=== PATIENT | female | born 1990 | race Hispanic/Latino ===

== ENCOUNTER 2018-08-08 19:24 | Observation (INO) | payer OTHER ==
[~2018-08-08] VITALS: Ht 154.9 cm; Wt 78.0 kg
--- OUTSIDE RECORDS SUMMARY | 2018-08-08 19:27 | XMS REPORT ---
Author Author [facility] Address Unknown Phone Unavailable Care Team Providers Care Senior Licensing Manager Name Role Phone JUANCHO NGUYEN Unavailable Unavailable GABE PANG Unavailable Unavailable GILBERT ROACH Unavailable Unavailable Problems This patient has no known problems. Allergies, Adverse Reactions, Alerts This patient has no known allergies or adverse reactions. Medications This patient has no known medications. Results Test Description Test Time Test Comments Text Results Atomic Results Result Comments ALPHA FETOPROTEIN (AFP), TUMOR MARKER 2017-05-24 17:44:00 ALPHA-FETOPROTEIN (BEAKER) (test hvpf=4697) 2.3 ng/mL <10.0 LIPID [id number] 17:29:00* Test Item Value Reference Range Comments TRIGLYCERIDES (BEAKER) (test dzwm=983) 84 mg/dL CHOLESTEROL (BEAKER) (test kccy=861) 168 mg/dL HDL CHOLESTEROL (BEAKER) (test sagg=258) 61 mg/dL LDL CHOLESTEROL CALCULATED (BEAKER) (test zujd=939) 90 mg/dL Triglyceride Reference Range: Low Risk <150 Borderline 150-199 High Risk 200-499 Very High Risk >=500Cholesterol Reference Range: Low Risk <200 Borderline 200-239 High Risk >240HDL Cholesterol Reference Range: Low Risk >=60 High Risk <40LDL Cholesterol Reference Range: Optimal <100 Near Optimal 100-129 Borderline 130-159 High 160-189 Very High >=190 BASIC METABOLIC [id number] 17:29:00* Test Item Value Reference Range Comments SODIUM (BEAKER) (test xzlb=881) 138 meq/L 136-145 POTASSIUM (BEAKER) (test izmm=468) 3.6 meq/L 3.5-5.1 CHLORIDE (BEAKER) (test mlzx=860) 101 meq/L 98-107 CO2 (BEAKER) (test kxyz=102) 28 meq/L 22-29 BLOOD UREA NITROGEN (BEAKER) (test ipdn=186) 12 mg/dL 7-21 CREATININE (BEAKER) (test wlqs=288) 0.70 mg/dL 0.57-1.25 GLUCOSE RANDOM (BEAKER) (test dezw=586) 92 mg/dL 70-105 CALCIUM (BEAKER) (test ijpw=116) 9.3 mg/dL 8.4-10.2 EGFR (BEAKER) (test ybxw=7934) 100 mL/min/1.73 sq m INSUFFICIENT CLINICAL DATA TO CALCULATE ESTIMATED GFR. HEPATIC FUNCTION [id number] 17:29:00* Test Item Value Reference Range Comments TOTAL PROTEIN (BEAKER) (test dzpn=366) 7.6 gm/dL 6.0-8.3 ALBUMIN (BEAKER) (test dlbz=9757) 4.1 g/dL 3.5-5.0 BILIRUBIN TOTAL (BEAKER) (test vksl=722) 0.3 mg/dL 0.2-1.2 BILIRUBIN DIRECT (BEAKER) (test zwlw=688) 0.1 mg/dL 0.1-0.5 ALKALINE PHOSPHATASE (BEAKER) (test ngqa=099) 84 U/L 40-150 AST (SGOT) (BEAKER) (test jojx=694) 16 U/L 5-34 ALT (SGPT) (BEAKER) (test aqls=345) 18 U/L 6-55 GAMMA GLUTAMYL TRANSFERASE (GGT)2017-05-24 17:29:00* Test Item Value Reference Range Comments GAMMA GLUTAMYL TRANSFERASE (BEAKER) (test kbit=653) 21 U/L 9-64 PROTHROMBIN [id number] 17:10:00* Test Item Value Reference Range Comments PROTIME (BEAKER) (test tboq=525) 13.7 seconds 11.7-14.7 INR (BEAKER) (test byhx=032) 1.1 <=5.9 RECOMMENDED COUMADIN/WARFARIN INR THERAPY RANGESSTANDARD DOSE: 2.0 - 3.0 Inclu allison: PROPHYLAXIS for venous thrombosis, systemic embolization; TREATMENT for rena ous thrombosis and/or pulmonary embolus.HIGH RISK: Target INR is 2.5-3.5 for pat ients with mechanical heart valves.CBC W/PLT COUNT & AUTO [id number] 17:05:00* Test Item Value Reference Range Comments WHITE BLOOD CELL COUNT (BEAKER) (test wupe=068) 9.3 K/ L 3.5-10.5 RED BLOOD CELL COUNT (BEAKER) (test spmk=499) 4.11 M/ L 3.93-5.22 HEMOGLOBIN (BEAKER) (test hlga=265) 12.2 GM/DL 11.2-15.7 HEMATOCRIT (BEAKER) (test crzg=341) 37.2 % 34.1-44.9 MEAN CORPUSCULAR VOLUME (BEAKER) (test pgwv=223) 90.5 fL 79.4-94.8 MEAN CORPUSCULAR HEMOGLOBIN (BEAKER) (test wwzi=113) 29.7 pg 25.6-32.2 MEAN CORPUSCULAR HEMOGLOBIN CONC (BEAKER) (test xuyt=756) 32.8 GM/DL 32.2-35.5 RED CELL DISTRIBUTION WIDTH (BEAKER) (test vuvy=497) 11.7 % 11.7-14.4 PLATELET COUNT (BEAKER) (test unbv=353) 277 K/CU MM 150-450 MEAN PLATELET VOLUME (BEAKER) (test qtnm=142) 9.8 fL 9.4-12.3 NUCLEATED RED BLOOD CELLS (BEAKER) (test drxr=698) 0 /100 WBC 0-0 NEUTROPHILS RELATIVE PERCENT (BEAKER) (test thyk=205) 51 % LYMPHOCYTES RELATIVE PERCENT (BEAKER) (test dpnd=010) 42 % MONOCYTES RELATIVE PERCENT (BEAKER) (test vihf=442) 6 % EOSINOPHILS RELATIVE PERCENT (BEAKER) (test nvao=203) 1 % BASOPHILS RELATIVE PERCENT (BEAKER) (test ibqm=228) 0 % NEUTROPHILS ABSOLUTE COUNT (BEAKER) (test wove=174) 4.72 K/ L 1.56-6.13 LYMPHOCYTES ABSOLUTE COUNT (BEAKER) (test jdxz=787) 3.92 K/ L 1.18-3.74 MONOCYTES ABSOLUTE COUNT (BEAKER) (test zsfx=911) 0.56 K/ L 0.24-0.36 EOSINOPHILS ABSOLUTE COUNT (BEAKER) (test jphm=587) 0.06 K/ L 0.04-0.36 BASOPHILS ABSOLUTE COUNT (BEAKER) (test rljs=482) 0.04 K/ L 0.01-0.08 IMMATURE GRANULOCYTES-RELATIVE PERCENT (BEAKER) (test lefk=4337) 0 % 0-1 TISSUE [id number] 10:14:00Surgical Pathology Report Case: [id number] Authorizing Provider: Wade Pang Collected: 03/23/2017 0858 MD Gabe Ordering Location: [facility] Endoscopy Received: 03/23/2017 1135 Services Pathologist: Jenn Sol MD Specimen: Biopsy, Gastric, Bx Random Gastric STOMACH, RANDOM, BIOPSY- REACTIVE GASTROPATHY- NEGATIVE FOR HELICOBACTER ON WARTHIN-STARRY STAIN Signing Pathologist Direct Phone Line: [phone] signed by Jenn Sol MD on 03/26/2017 at 10:14 [id number], [id number] Random gastric biopsy The specimen is received in a formalin-filled container labeled with the patient's information and labeled "random gastric biopsy" and consists of a 0.3 cm fragment of tracey tissue submitted in A1. CG/ew Performed.CBC W/PLT COUNT & AUTO [id number] 19:28:00* Test Item Value Reference Range Comments WHITE BLOOD CELL COUNT (BEAKER) (test rwju=954) 6.9 K/ L 3.5-10.5 RED BLOOD CELL COUNT (BEAKER) (test iqle=258) 4.11 M/ L 3.93-5.22 HEMOGLOBIN (BEAKER) (test rgsx=513) 12.1 GM/DL 11.2-15.7 HEMATOCRIT (BEAKER) (test jfvr=569) 35.3 % 34.1-44.9 MEAN CORPUSCULAR VOLUME (BEAKER) (test pxkv=400) 85.9 fL 79.4-94.8 MEAN CORPUSCULAR HEMOGLOBIN (BEAKER) (test xkxo=360) 29.4 pg 25.6-32.2 MEAN CORPUSCULAR HEMOGLOBIN CONC (BEAKER) (test zore=310) 34.3 GM/DL 32.2-35.5 RED CELL DISTRIBUTION WIDTH (BEAKER) (test ampj=062) 12.3 % 11.7-14.4 PLATELET COUNT (BEAKER) (test rsux=646) 253 K/CU MM 150-450 MEAN PLATELET VOLUME (BEAKER) (test idhd=012) 9.6 fL 9.4-12.3 NUCLEATED RED BLOOD CELLS (BEAKER) (test vexw=349) 0 /100 WBC 0-0 NEUTROPHILS RELATIVE PERCENT (BEAKER) (test tqtb=990) 41 % LYMPHOCYTES RELATIVE PERCENT (BEAKER) (test bgwa=821) 48 % MONOCYTES RELATIVE PERCENT (BEAKER) (test fjuo=780) 9 % EOSINOPHILS RELATIVE PERCENT (BEAKER) (test nqcv=229) 1 % BASOPHILS RELATIVE PERCENT (BEAKER) (test hbxs=498) 0 % NEUTROPHILS ABSOLUTE COUNT (BEAKER) (test ylck=151) 2.86 K/ L 1.56-6.13 LYMPHOCYTES ABSOLUTE COUNT (BEAKER) (test bbkx=462) 3.33 K/ L 1.18-3.74 MONOCYTES ABSOLUTE COUNT (BEAKER) (test pgph=906) 0.61 K/ L 0.24-0.36 EOSINOPHILS ABSOLUTE COUNT (BEAKER) (test ahmk=003) 0.09 K/ L 0.04-0.36 BASOPHILS ABSOLUTE COUNT (BEAKER) (test bhxt=206) 0.03 K/ L 0.01-0.08 IMMATURE GRANULOCYTES-RELATIVE PERCENT (BEAKER) (test gxkz=7150) 0 % 0-1 CREATINE KINASE (CK), TOTAL AND [id number] 18:26:00* Test Item Value Reference Range Comments CREATINE KINASE TOTAL (BEAKER) (test olfe=651) 73 U/L 29-200 CREATINE KINASE-MB (BEAKER) (test qetw=151) 0.8 ng/mL 0.0-6.6 CREATINE KINASE-MB INDEX (BEAKER) (test zthq=241) 1.1 % Effective 02/24/2014: CK-MB Reference Range ChangeNew: 0.0-6.6 Previous: 0.0- 4.9CK-MB Reference Range:<6.7 Normal6.7-10.0 Borderline>10.0 Abnormal TROPONIN [id number] 18:26:00* Test Item Value Reference Range Comments TROPONIN I (BEAKER) (test aluo=605) < ng/mL 0.00-0.03 Effective 02/24/2014: Reference Range ChangeNew: 0.00-0.03 Previous 0.00-0.15T roponin I (TnI) levels must be interpreted in the context of the presenting symp toms and the clinical findings. Elevated TnI levels indicate myocardial damage, but are not specific for ischemic heart disease. Elevated TnI levels are seen in patients with other cardiac conditions (including myocarditis and congestive he art failure), and slight TnI elevations occur in patients with other conditions, including sepsis, renal failure, acidosis, acute neurological disease, and pers istent tachyarrhythmia.BASIC METABOLIC [id number] 18:24:00* Test Item Value Reference Range Comments SODIUM (BEAKER) (test qltt=866) 138 meq/L 136-145 POTASSIUM (BEAKER) (test ufpx=569) 3.3 meq/L 3.5-5.1 CHLORIDE (BEAKER) (test ueaz=436) 102 meq/L 98-107 CO2 (BEAKER) (test bjhc=004) 27 meq/L 22-29 BLOOD UREA NITROGEN (BEAKER) (test rzbh=290) 10 mg/dL 7-21 CREATININE (BEAKER) (test cvnl=285) 0.72 mg/dL 0.57-1.25 GLUCOSE RANDOM (BEAKER) (test vnfc=721) 94 mg/dL 70-105 CALCIUM (BEAKER) (test ysjj=800) 9.2 mg/dL 8.4-10.2 EGFR (BEAKER) (test ruve=8429) mL/min/1.73 sq m INSUFFICIENT CLINICAL DATA TO CALCULATE ESTIMATED GFR. HEPATIC FUNCTION [id number] 15:39:00* Test Item Value Reference Range Comments TOTAL PROTEIN (BEAKER) (test udgk=353) 8.2 gm/dL 6.0-8.3 ALBUMIN (BEAKER) (test fmex=7588) 4.4 g/dL 3.5-5.0 BILIRUBIN TOTAL (BEAKER) (test urbt=913) 0.4 mg/dL 0.2-1.2 BILIRUBIN DIRECT (BEAKER) (test faxa=422) 0.2 mg/dL 0.1-0.5 ALKALINE PHOSPHATASE (BEAKER) (test buft=947) 91 U/L 40-150 AST (SGOT) (BEAKER) (test hlbu=473) 22 U/L 5-34 ALT (SGPT) (BEAKER) (test drrv=851) 17 U/L 6-55 BASIC METABOLIC [id number] 15:39:00* Test Item Value Reference Range Comments SODIUM (BEAKER) (test dybz=171) 136 meq/L 136-145 POTASSIUM (BEAKER) (test qcrg=860) 4.3 meq/L 3.5-5.1 CHLORIDE (BEAKER) (test umjl=748) 101 meq/L 98-107 CO2 (BEAKER) (test rggb=951) 26 meq/L 22-29 BLOOD UREA NITROGEN (BEAKER) (test gwyo=336) 11 mg/dL 7-21 CREATININE (BEAKER) (test dabt=866) 0.70 mg/dL 0.57-1.25 GLUCOSE RANDOM (BEAKER) (test zygb=083) 73 mg/dL 70-105 CALCIUM (BEAKER) (test zxyc=435) 9.5 mg/dL 8.4-10.2 EGFR (BEAKER) (test xdxh=6444) mL/min/1.73 sq m INSUFFICIENT CLINICAL DATA TO CALCULATE ESTIMATED GFR. CBC W/PLT COUNT & AUTO [id number] 15:23:00* Test Item Value Reference Range Comments WHITE BLOOD CELL COUNT (BEAKER) (test moev=867) 7.7 K/ L 3.5-10.5 RED BLOOD CELL COUNT (BEAKER) (test bysq=471) 4.54 M/ L 3.93-5.22 HEMOGLOBIN (BEAKER) (test lxoy=382) 13.3 GM/DL 11.2-15.7 HEMATOCRIT (BEAKER) (test rfgx=927) 40.3 % 34.1-44.9 MEAN CORPUSCULAR VOLUME (BEAKER) (test nmju=066) 88.8 fL 79.4-94.8 MEAN CORPUSCULAR HEMOGLOBIN (BEAKER) (test ctlp=677) 29.3 pg 25.6-32.2 MEAN CORPUSCULAR HEMOGLOBIN CONC (BEAKER) (test hzgx=518) 33.0 GM/DL 32.2-35.5 RED CELL DISTRIBUTION WIDTH (BEAKER) (test ursp=145) 12.6 % 11.7-14.4 PLATELET COUNT (BEAKER) (test pgny=037) 295 K/CU MM 150-450 MEAN PLATELET VOLUME (BEAKER) (test neqm=398) 10.0 fL 9.4-12.3 NUCLEATED RED BLOOD CELLS (BEAKER) (test hblk=124) 0 /100 WBC 0-0 NEUTROPHILS RELATIVE PERCENT (BEAKER) (test hyqz=916) 52 % LYMPHOCYTES RELATIVE PERCENT (BEAKER) (test obev=529) 41 % MONOCYTES RELATIVE PERCENT (BEAKER) (test rmfj=004) 6 % EOSINOPHILS RELATIVE PERCENT (BEAKER) (test aazu=606) 1 % BASOPHILS RELATIVE PERCENT (BEAKER) (test qygl=764) 0 % NEUTROPHILS ABSOLUTE COUNT (BEAKER) (test phdc=730) 4.01 K/ L 1.56-6.13 LYMPHOCYTES ABSOLUTE COUNT (BEAKER) (test wvii=622) 3.12 K/ L 1.18-3.74 MONOCYTES ABSOLUTE COUNT (BEAKER) (test jguc=428) 0.42 K/ L 0.24-0.36 EOSINOPHILS ABSOLUTE COUNT (BEAKER) (test nwyj=918) 0.06 K/ L 0.04-0.36 BASOPHILS ABSOLUTE COUNT (BEAKER) (test icnc=557) 0.03 K/ L 0.01-0.08 IMMATURE GRANULOCYTES-RELATIVE PERCENT (BEAKER) (test rdau=0280) 0 % 0-1 TISSUE [id number] 16:06:00Surgical Pathology Report Case: [id number] Authorizing Provider: Wade Ortiz Collected: 10/13/2016 0908 MD Gabe Ordering Location: [facility] Received: 10/13/2016 1427 Pathologist: Gordy Rodriguez MD Specimen: Stomach, BX/RANDOM/FORCEP STOMACH, RANDOM BIOPSY: - MILD CHRONIC INACTIVE GASTRITIS - H.PYLORI NEGATIVE BY WARTHIN-STARRY STAIN - NEGATIVE FOR INTESTINAL METAPLASIA, DYSPLASIA AND MALIGNANCY 34460, 34805Kbtqemnvya strictureRandom stomach biopsyThe specimen is received in a formalin-filled container and labeled with the patient's information and labeled "stomach biopsy" and consists of a 0.2 cm round fragment of tracey soft tissue, submitted entirely A1. CG/pl Performed.[id number] 09:21:00* Test Item Value Reference Range Comments POC-CREATININE (BEAKER) (test jsrl=3790) 0.6 mg/dL 0.6-1.3 [address] [address] POC-EGFR (BEAKER) (test ncat=8629) mL/min/1.73M2 Insufficient clinical data to calculate estimated GFR HEPATIC FUNCTION [id number] 13:45:00* Test Item Value Reference Range Comments TOTAL PROTEIN (BEAKER) (test hplp=779) 7.9 gm/dL 6.0-8.3 ALBUMIN (BEAKER) (test irvh=3309) 4.3 g/dL 3.5-5.0 BILIRUBIN TOTAL (BEAKER) (test qdvy=077) 0.5 mg/dL 0.2-1.2 BILIRUBIN DIRECT (BEAKER) (test atgj=074) 0.2 mg/dL 0.1-0.5 ALKALINE PHOSPHATASE (BEAKER) (test tbsg=483) 82 U/L 40-150 AST (SGOT) (BEAKER) (test padj=962) 20 U/L 5-34 ALT (SGPT) (BEAKER) (test przi=273) 20 U/L 6-55 IMMUNOGLOBULIN G (IGG)2016-08-02 13:41:00* Test Item Value Reference Range Comments IMMUNOGLOBULIN G (IGG) (BEAKER) (test qptj=749) 1476 mg/dL 540-1822 TISSUE [id number] 15:11:00Surgical Pathology Report Case: [id number] Authorizing Provider: Humble Mir Ordering Provider: Wade Mir MD Fernando, MD Ordering Location: [facility] Collected: 07/03/2016 1054 Pathologist: Ne Hernández MD Received: 07/03/2016 8143 Specimen: Gastric, RANDOM STOMACH BX R/O H PYLORI STOMACH, RANDOM BIOPSY: - GASTRIC ANTRAL AND JUNCTIONAL MUCOSA WITH CHRONIC INACTIVE GASTRITIS - NEGATIVE FOR INTESTINAL METAPLASIA - WARTHIN-STARRY STAIN NEGATIVE FOR HELICOBA CTER PYLORI MICRO-ORGANISMS Signing Pathologist Direct Phone Line: [phone], 88312dysphagia unspecified type, esophageal stricture, rule out H. pyloriR andom stomach biopsyThe specimen is received in a formalin-filled container and labeled with the patient's information and labeled "random stomach biopsy" and c onsists of two round fragments of tracey-white soft tissue measuring 0.1 and 0.2 cm , submitted A1. CG/plPerformed.
--- OUTSIDE RECORDS SUMMARY | 2018-08-08 19:27 | XMS REPORT | Clinical Summary ---
Author Author [facility] Address Unknown Phone Unavailable Care Team Providers Care Patient Admitting Clerk Name Role Phone Sharpless PCP Allergies Comments Active Allergy Reactions Severity Noted Date Docosanol Hives, High 07/27/2015 Swelling Iodine And Iodide Rash Low 06/20/2016 Containing Products Penicillins Nausea Only, Low 06/20/2016 Rash Medications End Date Status Medication Sig Dispensed Refills Start Date Active FEXOFENADINE HCL (KELSEA Take 1 tablet 0 ORAL) by mouth daily . Active fluticasone (FLONASE) 50 1 spray by 0 mcg/actuation nasal spray Nasal route daily. Active conjugated estrogens Place 0.5 g 0 (PREMARIN) 0.625 mg/gram vaginally vaginal cream daily . Active ALBUTEROL INHL Inhale by 0 mouth via inhaler as needed. Active multivitamin per tablet Take 1 tablet 0 by mouth daily. Active omega-3 fatty Take by 0 acids-vitamin E 1,000 mg mouth. Cap Active ascorbic acid, vitamin C, Take 500 mg 0 (ASCORBIC ACID WITH CHAD by mouth HIPS) 500 MG tablet daily. Active Problems Problem Noted Date Elevated liver enzymes 08/04/2016 Last Assessment & Plan: Mild elevation of liver enzymes in a mixed pattern seen on labs 05/2016. Comprehensive panel was negative for autoimmune, metabolic and viral etiologies of liver disease. US abdomen showed diffuse hepatic steatosis. Her only risk factor for fatty liver disease is obesity. There is no evidence of cirrhosis on exam, labs or imaging. She has lost 10 pounds since 05/2016 and her liver enzymes have normalized. We encouraged her to continue working with the mask layout designer and lose 10% more in the next six months. She agreed with the plan. 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 There is cavernous transformation which indicates chronicity. No need for anticoagulation. EGD in September, did not show gastroesophageal varices. 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 Recently underwent EGD with Dr. Chapman for progressive dysphagia and found to have stricture at the anastomotic site with dilation done. Continue to follow-up with Dr. Chapman. 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 She is scheduled to have another surgery this summer. Obesity (BMI 30.0-34.9) 08/04/2016 Last Assessment & Plan: The patient's current BMI is 34.1. Obesity is an established risk factor for vascular complications (ie coronary artery disease, cerebrovascular disease, peripheral vascular disease), osteoarthritis, pulmonary disease, as well as the development of non-alcoholic fatty liver disease and the risk for non-alcoholic steatohepatitis. She has lost 10 pounds since May 2016. We encouraged her to continue efforts to lose 10% more in the next 3-6 months. Family History Medical History Relation Name Comments Cancer Mother Relation Name Status Comments Mother Social History Date Tobacco Use Types Packs/Day Years Used Never Smoker Smokeless Tobacco: Never Used Alcohol Use Drinks/Week oz/Week Comments Yes 1 Glasses of 1.8 wine 1 Cans of beer 1 Shots of liquor Sex Assigned at Date Recorded Not on file Industry Job Start Date Occupation Not on file Not on file Not on file Travel End Travel History Travel Start No recent travel history available. Last Filed Vital Signs Not on file Plan of Treatment Not on file Results Not on fileafter 08/07/2017 Insurance Payer Benefit Subscriber ID Type Phone Address Plan / Group [employer]ET[employer] - [place] C[employer] AET[employer] HMO xxxxxxxxxx HMO/POS POS QPOS
[2018-08-08] MEDS ORDERED: ASPIRIN 81 MG CHEW TAB PO ONE (20:45)
[2018-08-08] MEDS ORDERED: MORPHINE SULFATE INJ 4 MG/ML INJ 1ML IV PRN (20:45)
[2018-08-08] MEDS ORDERED: ACETAMINOPHEN 325 MG TAB PO PRN (20:45)
[2018-08-08] MEDS ORDERED: DIPHENHYDRAMINE HCL INJ 50 MG/ML VIAL IV PRN (20:45)
[2018-08-08] MEDS ORDERED: ONDANSETRON HCL INJ 2MG/ML 2ML 2 MG/ML VIAL IV PRN (20:45)
[2018-08-08] MEDS ORDERED: ZOLPIDEM TARTRATE 5 MG TAB PO PRN (20:45)
[2018-08-08] MEDS ORDERED: CLONIDINE HCL 0.1 MG TAB PO PRN (20:45)
[2018-08-08] MEDS ORDERED: ENALAPRILAT IV INJ 1.25 MG/ML VIAL IV PRN (20:45)
--- OUTSIDE RECORDS SUMMARY | 2018-08-08 20:52 | XMS REPORT | Clinical Summary ---
Author Author [facility] Address Unknown Phone Unavailable Care Team Providers Care Angular Js Developer Name Role Phone Sharpless PCP Allergies Comments [...] encouraged her to continue working with the car shakeout operator and lose 10% more in the next [...]
--- NOTE | 2018-08-08 20:59 | Diagnostic Imaging Report ---
EXAMINATION: Chest PA and lateral views INDICATION: Shortness of breath chest pain. ^[id number] ^2029 COMPARISON: None FINDINGS: TUBES and LINES: None. LUNGS: Lungs are well inflated. Mild perihilar, peribronchial thickening and perihilar streaky densities may reflect viral infection versus reactive airway disease. There is no evidence of pneumonia or pulmonary edema. PLEURA: No pleural effusion or pneumothorax. HEART AND MEDIASTINUM: The cardiomediastinal silhouette is unremarkable. BONES AND SOFT TISSUES: No acute osseous lesion. 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 UPPER ABDOMEN: No free air under the diaphragm. IMPRESSION: Mild perihilar, peribronchial thickening and perihilar streaky densities may reflect viral infection versus reactive airway disease. No consolidation. Signed by: Dr. Radha De Oliveira M.D. on 08/08/2018 8:56 PM
--- NOTE | 2018-08-08 21:12 | NUR ---
[facility] CALLED FOR TRANSPORT 45MIN ETA
--- NOTE | 2018-08-08 21:46 | NUR ---
PT RESTING, VITAL SIGNS STABLE, PT VOICES NO COMPLAINTS AT THIS TIME
[2018-08-08 22:35] VITALS: BP 130/82
[2018-08-08 23:00] VITALS: BP 130/82
[2018-08-08 23:12] VITALS: BP 130/82
[2018-08-09 04:00] VITALS: BP 106/69
[2018-08-09 05:46] LABS: CREATINE KINASE 55 IU/L (29-168)
[2018-08-09 06:07] LABS: CHOL/HDL RATIO 2.6 (3.0-3.6)
[2018-08-09 06:52] LABS: BASOPHILS % 0.5 % (0.0-1.0); EOSINOPHILS # (AUTO) 0.4 (0.0-0.4); EOSINOPHILS % 4.3 % (0.0-6.0); HEMATOCRIT 35.2 % (34.2-44.1); HEMOGLOBIN 12.1 g/dL (12.0-16.0); LYMPHOCYTES # (AUTO) 3.5 (1.0-3.2); LYMPHOCYTES % 40.8 % (18.0-39.1); MEAN CORPUSCULAR HEMOGLOBIN 30.7 pg (28-32); MEAN CORPUSCULAR HGB CONC 34.4 g/dL (31-35); MEAN CORPUSCULAR VOLUME 89.3 fL (81-99); MONOCYTES # (AUTO) 0.6 (0.2-0.8); MONOCYTES % 7.3 % (4.4-11.3); NEUTROPHILS # (AUTO) 4.1 (2.1-6.9); NEUTROPHILS % 46.9 % (38.7-80.0); PLATELET COUNT 224 x10e3/uL (140-360); RED BLOOD COUNT 3.94 x10e6/uL (3.6-5.1); RED CELL DISTRIBUTION WIDTH 11.9 % (11.7-14.4)
[2018-08-09 07:04] LABS: BLOOD UREA NITROGEN 9 mg/dL (7-26); BUN/CREATININE RATIO 13 (6-25); CALCIUM 9.3 mg/dL (8.4-10.2); CARBON DIOXIDE 26 mmol/L (22-29); CHLORIDE 100 mmol/L (98-107); CREATININE, SERUM 0.69 mg/dL (0.57-1.11); EST GLOMERULAR FILTRATION RATE > 60 ML/MIN (60-); GLUCOSE 80 mg/dL (74-118); MAGNESIUM 1.7 MG/DL (1.3-2.1); SODIUM 135 mmol/L (136-145)
[2018-08-09 07:27] LABS: B-TYPE NATRIURETIC PEPTIDE2 < 10.0 pg/mL (0-100); FREE T4 (FREE THYROXINE) 1.08 ng/dL (0.9-1.8); THYROID STIMULATING HORMONE 2.444 uIU/mL (0.350-4.940)
[2018-08-09] MEDS ORDERED: FAMOTIDINE 20 MG TAB PO SCH (07:30)
--- NOTE | 2018-08-09 07:30 | NUR ---
Gave report to oncoming nurse. Call light within reach. Patient in bed.
[2018-08-09 08:20] VITALS: BP 121/75
[2018-08-09] MEDS ORDERED: ASPIRIN 325 MG TAB PO SCH (09:00)
[2018-08-09] MEDS ORDERED: FAMOTIDINE 20 MG/2 ML VIAL IV SCH (09:00)
[2018-08-09] MEDS ORDERED: ASPIRIN325 MG PO (09:51)
--- NOTE | 2018-08-09 10:20 | NUR ---
Kalli Cornelius, PRICING LEAD reviewed echo and Troponin result given as well. Per PRICING LEAD patient may be discharged.
--- NOTE | 2018-08-09 11:16 | NUR ---
Patient discharged home in stable condition with all belongings. Written instructions and prescription given. Patient verbalized understanding.
--- NOTE | 2018-08-12 03:19 | Discharge Summary ---
ADMISSION DIAGNOSES: Chest pain, asthma, prediabetes history, hepatic steatosis, obesity. DISCHARGE DIAGNOSES: Chest pain, asthma, prediabetes history, hepatic steatosis, obesity. Rule out acute coronary syndrome. HISTORY: The patient has a history of asthma, hepatic steatosis, and prediabetes. SURGICAL HISTORY: Bladder reconstruction, left breast mass removal, esophageal reconstruction, partial hysterectomy, and vaginal reconstruction. FAMILY HISTORY: The patient's aunt and grandma have diabetes. The patient's mom, grandma, and aunt have cancer. The patient's grandma had a stroke. SOCIAL HISTORY: The patient admits to occasional alcohol use. HOSPITAL COURSE: A 28-year-old female complains of substernal chest pressure that began Sunday. She went to the MD and he said it is likely due to her asthma. By , she began having intermittent sharp left chest pain. Nothing worsens the pain, but lying down improves the pain. She denies shortness of breath, diaphoresis, and dizziness. 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 She is currently planning her wedding and has a dress fitting on the day of admission and is very antsy to leave. On admission, the patient had troponins that were negative x2. Chest x-ray positive for peribronchial thickening and perihilar streaky density. Lipids were within normal limits. Echo showed an EF of 50% to 55% with trace MR. The patient is very adamant about leaving today to make her dress fitting. She is no longer having chest pain and is ready to go. She will follow up with primary care in 1-2 weeks and Cardiology as discussed. The patient understands discharge instructions and agrees to plan. Vital signs stable, patient afebrile. Dictated by Kalli Cornelius NP MD ANALY Mcintyre/[place] /[id number]
== END 2018-08-09 11:05 | disposition home or self-care (01) ==
LOC: FSED 19:24 → ERHOLD 20:42 → IMCU 22:35
PROVIDERS: ADMIT Internal Medicine; ATTEND Internal Medicine
DX: R07.9 Chest pain, unspecified (principal); J45.909 Unspecified asthma, uncomplicated; K76.0 Fatty (change of) liver, not elsewhere classified; R73.03 Prediabetes; E66.9 Obesity, unspecified; Z68.32 Body mass index [BMI] 32.0-32.9, adult
CPT/HCPCS: 36415; 71046; 80048; 80053; 80061; 81003; 82550; 82553 ×2; 83036; 83735; 83880; 84439; 84443; 84484 ×2; 85025 ×2; 85379; 93005; 93306; 99284; G0378 ×2

== ENCOUNTER 2019-05-08 17:52 | Emergency (ER) | payer OTHER ==
[~2019-05-08] VITALS: Ht 154.9 cm; Wt 77.1 kg
[~2019-05-08 17:52] MED LIST: ASPIRIN325 MG PO
[2019-05-08] MEDS ORDERED: PREDNISONE20 MG PO (18:23)
[2019-05-08] MEDS ORDERED: TESSALON PERLE100 MG PO (18:23)
== END 2019-05-08 18:42 | disposition home or self-care (01) ==
LOC: FSED 17:52
DX: R05 Cough (principal); J20.9 Acute bronchitis, unspecified; J06.9 Acute upper respiratory infection, unspecified
CPT/HCPCS: 83518; 87400; 99283

== ENCOUNTER 2019-05-10 09:22 | Emergency (ER) | payer OTHER ==
[~2019-05-10] VITALS: Ht 154.9 cm; Wt 77.1 kg
[~2019-05-10 09:22] MED LIST changes: +PREDNISONE20 MG PO; +TESSALON PERLE100 MG PO
[2019-05-10] MEDS ORDERED: SYMBICORT 80-10.2 GM (09:41)
[2019-05-10] MEDS ORDERED: ALBUTEROL2.5 MG/3 M (09:41)
[2019-05-10] MEDS ORDERED: MACRODANTIN100 MG PO (09:41)
== END 2019-05-10 10:00 | disposition home or self-care (01) ==
LOC: FSED 09:22
DX: R50.9 Fever, unspecified (principal); J02.0 Streptococcal pharyngitis
CPT/HCPCS: 83518; 87400; 99283

== ENCOUNTER 2021-11-23 07:00 | Emergency (ER) | payer OTHER ==
[~2021-11-23] VITALS: Ht 154.9 cm; Wt 77.1 kg
[~2021-11-23 07:00] MED LIST changes: +ALBUTEROL2.5 MG/3 M; +MACRODANTIN100 MG PO; +SYMBICORT 80-10.2 GM
== END 2021-11-23 08:25 | disposition home or self-care (01) ==
LOC: FSED 07:23
DX: S00.451A Superficial foreign body of right ear, initial encounter (principal); E11.9 Type 2 diabetes mellitus without complications; J45.909 Unspecified asthma, uncomplicated; F41.9 Anxiety disorder, unspecified
CPT/HCPCS: 99283